=== PATIENT | female | born 2000 | race Two or more races ===

== ENCOUNTER 2020-12-14 04:34 | Emergency (ER) | payer MEDICAID ==
[2020-12-14 04:34] VITALS: BP 112/88
[2020-12-14] MEDS ORDERED: methylPREDNISolone SOD SUCC 125 MG/2 ML VL IM ONE (05:00)
== END 2020-12-14 05:37 | disposition home or self-care (01) ==
LOC: ER 04:34
DX: L50.9 Urticaria, unspecified (principal)
CPT/HCPCS: 96372; 99283; J2930